=== PATIENT | born 1940 | race Caucasian/White ===

== ENCOUNTER 2019-10-18 09:12 | Day surgery (SDC) | payer MEDICARE, OTHER, SELFPAY ==
[2019-10-18 10:07] VITALS: BP 144/73; PULSE 60; RESP 15; TEMP 36.3; O2SAT 98; BMI 27.1
[2019-10-18] MEDS: SODIUM CHLORIDE 0.9% 1,000 ML 70 ML IV (10:16)
--- NOTE | 2019-10-18 11:02 | PM.HP.1 ---
History of Present Illness History of Present Illness Date Patient Seen: 10/18/19 Time Patient Seen: 11:03 Chief complaint: [id number] Narrative: Patient presented for screening colonoscopy. Last colonoscopy 10 years ago. Denies diarrhea, constipation rectal bleeding. Patient History Family & Social History Social History: household members spouse Meds Home Medications and Allergies Home Medications Medication Instructions Recorded Confirmed Type No Known Home Medications 10/18/19 10/18/19 History Allergies Allergy/AdvReac Type Severity Reaction Status Date / Time No Known Drug Allergies Allergy Verified 10/18/19 10:05 Review of Systems Review of Systems ROS Unobtainable: All systems reviewed & are unremarkable except as noted in HPI and below Exam Vital Signs (past 8 hours): - 10/18/19 10:07 Temperature 97.3 F Pulse Rate 60 Respiratory Rate 15 Blood Pressure 144/73 Pulse Oximetry 98 Oxygen Delivery Method Room Air Const General: cooperative, healthy appearing, comfortable, well developed and well groomed Nutritional Appearance: average body habitus Orientation: oriented x3 Resp Effort & Inspection: normal respiratory effort and able to speak in complete sentences Auscultation: clear to auscultation bilaterally Cardio Rate: regular rate Rhythm: regular rhythm Heart Sounds: S1 normal and S2 normal GI Palpation: soft, No guarding and No rigid Auscultation: normal bowel sounds Extrem Right lower extremity: no edema Left lower extremity: no edema Assessment & Plan Assessment & Plan narrative: 1. Screening colonoscopy - Average risk -colonoscopy today. further recommendations to follow
[2019-10-18] MEDS: fentaNYL 250 MCG/5 ML INJ IV (11:09)
[2019-10-18] MEDS: MIDAZOLAM 5 MG/5 ML VIAL IV (11:10)
[2019-10-18 11:33] VITALS: BP 119/71; PULSE 57; RESP 16; TEMP 36.6; O2SAT 95
--- NOTE | 2019-10-18 11:37 | PM.OP.ENDO ---
Operative Date/Time/Diagnoses Date of procedure: 10/18/19 Time of procedure: 11:11 Procedure Notes Procedure in detail: Surgeon: Nella Bales DO Procedure: Colonoscopy Preoperative diagnosis: Screening colonoscopy average risk Postoperative diagnosis: Sigmoid and descending colon diverticula Mild internal hemorrhoids Otherwise unremarkable colonoscopy Medications: Conscious sedation using 4 mg IV of Midazolam and 100 mcg IV of Fentanyl Preanesthesia Assessment An H and P was performed/updated and the Px?s ASA class is 2. The procedure was discussed in detail with the patient. The potential risks and complications including infection, bleeding, missed lesions, perforation, need for surgery in case of perforation, prolonged hospital stay, and were explained. A brief question and answer period was allotted and once all questions were answered, informed consent was obtained. The patient was brought back to the procedure room and placed on standard monitoring. The patient?s vital signs were monitored continuously throughout the entire procedure. Prior to starting, a timeout was performed to confirm the patient?s identity, allergies, medications, and procedure. Procedure in detail The patient was placed in left lateral decubitus position and once adequate sedation was obtained a THA was performed. The digital rectal examination did not reveal any palpable lesions. The tip of the colonoscope was placed in the anal canal and advanced without difficulty all the way to the cecum which was identified by the appendiceal orifice and the ileocecal valve. Careful examination of all painting of the colon was performed with irrigation of any residual stool. Diverticulum were noted throughout the sigmoid and descending colon Grade 1-2 internal hemorrhoids noted on retroflexion Otherwise unremarkable colonoscopy The patient tolerated the procedure well and will be brought back to the recovery area to be discharged once criteria are met. The prep was judged to be good/excellent and adequate to identify polyps less than 5 mm. The withdrawal time was 7min. The total physician intraservice time was 16min. Complications There were no complications and estimated blood loss was minimal. Recommendations: Resume previous diet Continue outPx medications No repeat colonoscopy due to age An emergency contact number was given to the patient for any complications related to the procedure
[2019-10-18 11:39] VITALS: BP 125/67; PULSE 64; RESP 14; O2SAT 97
[2019-10-18 11:43] VITALS: BP 119/70; PULSE 60; RESP 13; TEMP 36.6; O2SAT 97
[2019-10-18 11:51] VITALS: BP 129/71; PULSE 57; RESP 15; TEMP 36.6; O2SAT 96
[2019-10-18 12:15] VITALS: BP 138/69; PULSE 56; RESP 16; O2SAT 96
--- NOTE | 2019-10-18 13:32 | SUR.PHASEII ---
1210 AFTER D/C INSTRUCTIONS REVIEWED WITH PT AND . LEFT AND PT BEHIND CURTAIN TO GET DRESSED, PER , PT REFUSED TO LISTEN AND OPENED CURTAIN AND TOOK OFF TOWARDS BR, NURSE INTERCEPTED PT AND ASSISTED PT TO BR WHERE PT INSISTED HE BE LEFT ALONE, NURSE STEP OUTSIDE BR DOOR,UPON ENTERING BR AGAIN NURSE NOTED BLOOD ON PTS HAND PT STATES HE FELL FORWARD OFF TOILET AND BUMPED HIS FOREHEAD ON EDGE OF LINEN HAMPER. PT HAD A SMALL CUT AND ABRASION ON FOREHEAD ABOVE EYE AND ON UPPER CHEEK. PT ESCORTED BACK TO [facility],VITAL SIGNS TAKEN (NORMAL) AND DR MONTIEL NOTIFIED AND IN TO SEE PT, PT REMINDED TO SEEK ASSISTANCE TODAY WHEN AMBULATING. DR MONTIEL SPOKE AT LENGTH WITH PT AND , PT, AND DR MONTIEL STATE OK FOR PT TO BE D/C'D HOME. PT D/C HOME WITH .
== END 2019-10-18 12:32 | disposition home or self-care (01) ==
PROVIDERS: Visit Provider Student in an Organized Health Care Education/Training Program
PROC: 0DJD8ZZ Inspection of Lower Intestinal Tract, Via Natural or Artificial Opening Endoscopic (ICD-10-PCS; CPT 45378; principal; 2019-10-18 10:30)
DX: Z12.11 Encounter for screening for malignant neoplasm of colon (principal); K57.30 Diverticulosis of large intestine without perforation or abscess without bleeding; K64.0 First degree hemorrhoids
CPT/HCPCS: G0121; J2250; J3010